=== PATIENT | female | born 1980 | race Hispanic/Latino ===

== ENCOUNTER 2021-05-05 12:27 | Emergency (ER) | payer SELFPAY ==
[~2021-05-05] VITALS: Ht 175.3 cm; Wt 87.1 kg
[~2021-05-05 12:27] MED LIST: BACLOFEN20 MG PO; BENTYL10 MG PO; CARAFATE; CARAFATE SU1 G/10 ML; CARAFATE1 GM/10 ML PO; CYMBALTA20 MG PO; DEXILANT; GABAPENTIN100 MG PO; GABAPENTIN300 MG PO; LEVOTHYROXINE75 MCG PO; NEXIUM40 MG PO; NORCO 10-325 T1 EACH PO; NORCO 5-325 TA1 EACH PO; NORCO 7.5-3251 EACH; NORCO 7.5-3251 EACH PO; PANTOPRAZOLE SO40 MG PO; PREDNISONE20 MG PO; REGLAN10 MG PO; SOMA350 MG PO; TYLENOL WITH C1 EACH PO; ULTRAM50 MG PO; Z.0.DEXILANT60 MG; Z.0.NEXIUM40 MG; Z.0.PRENATAL VITAM1; ZOFRAN4 MG PO
[2021-05-05] MEDS ORDERED: SODIUM CHLORIDE 0.9% 1000ML 1,000 ML IV STA (12:41)
[2021-05-05] MEDS ORDERED: Morphine 4mg Syringe 4 MG/ML INJ IV STA (12:41)
[2021-05-05] MEDS ORDERED: ONDANSETRON HCL INJ 2MG/ML 2ML 2 MG/ML VIAL IV ONE (13:00)
[2021-05-05 13:44] LABS: CLARITY,URINE TURBID (CLEAR); COLOR,URINE RED (YELLOW); LEUKOCYTE ESTERASE ,URINE TRACE (NEGATIVE); NITRITE,URINE NEGATIVE (NEGATIVE)
[2021-05-05 13:45] LABS: BACTERIA,URINE FEW /HPF; EPITHELIAL CELLS,URINE FEW /LPF; KETONES,URINE NEGATIVE (NEGATIVE); PROTEIN,URINE DIPSTICK 1+ (NEGATIVE); RBC,URINE >50 /HPF (0-5); URINE UROBILINOGEN 0.2 mg/dL (0.2 - 1)
[2021-05-05 14:22] LABS: BASOPHILS % 0.7 % (0.0-1.0); EOSINOPHILS # (AUTO) 0.1 (0.0-0.4); EOSINOPHILS % 1.9 % (0.0-6.0); HEMATOCRIT 37.7 % (34.2-44.1); HEMOGLOBIN 11.9 g/dL (12.0-16.0); LYMPHOCYTES # (AUTO) 1.6 (1.0-3.2); LYMPHOCYTES % 37.8 % (18.0-39.1); MEAN CORPUSCULAR HEMOGLOBIN 29.1 pg (28-32); MEAN CORPUSCULAR HGB CONC 31.6 g/dL (31-35); MEAN CORPUSCULAR VOLUME 92.2 fL (81-99); MONOCYTES # (AUTO) 0.3 (0.2-0.8); MONOCYTES % 6.6 % (4.4-11.3); NEUTROPHILS # (AUTO) 2.2 (2.1-6.9); NEUTROPHILS % 52.8 % (38.7-80.0); PLATELET COUNT 233 x10e3/uL (140-360); RED BLOOD COUNT 4.09 x10e6/uL (3.6-5.1); RED CELL DISTRIBUTION WIDTH 15.3 % (11.7-14.4)
[2021-05-05 14:35] LABS: INR 0.83; PARTIAL THROMBOPLASTIN TIME 23.5 seconds (23.8-35.5); PROTHROMBIN TIME 12.1 seconds (11.9-14.5)
[2021-05-05 14:40] LABS: ALBUMIN/GLOBULIN RATIO 1.1 (0.8-2.0); ANION GAP 15.9 mmol/L (8-16); CALCIUM 8.3 mg/dL (8.4-10.2); CREATININE, SERUM 0.75 mg/dL (0.57-1.11); POTASSIUM 3.9 mmol/L (3.5-5.1)
[2021-05-05] MEDS ORDERED: ONDANSETRON HCL INJ 2MG/ML 2ML 2 MG/ML VIAL IV STA (14:56)
[2021-05-05] MEDS ORDERED: Morphine 4mg Syringe 4 MG/ML INJ IV PRN (15:00)
[2021-05-05] MEDS ORDERED: FAMOTIDINE 20 MG/2 ML VIAL IV STA (15:42)
[2021-05-05] MEDS ORDERED: METOCLOPRAMIDE HCL 10 MG/2ML VIAL IV ONE (15:45)
[2021-05-05] MEDS ORDERED: DONNATAL/LIDOCAINE/MAALOX 30 ML SUSP PO ONE (15:45)
[2021-05-05] MEDS ORDERED: DIPHENHYDRAMINE HCL INJ 50 MG/ML VIAL IV ONE (15:45)
[2021-05-05] MEDS ORDERED: CIPRO500 MG PO (16:29)
[2021-05-05] MEDS ORDERED: ONDANSETRON ODT8 MG PO (16:29)
[2021-05-05 17:17] VITALS: BP 131/99
== END 2021-05-05 17:19 | disposition home or self-care (01) ==
LOC: ER 12:45
DX: R31.9 Hematuria, unspecified (principal); N12 Tubulo-interstitial nephritis, not specified as acute or chronic; N39.0 Urinary tract infection, site not specified; M54.50 Low back pain, unspecified; R11.2 Nausea with vomiting, unspecified; E03.9 Hypothyroidism, unspecified; K21.9 Gastro-esophageal reflux disease without esophagitis; Z85.850 Personal history of malignant neoplasm of thyroid; Z85.41 Personal history of malignant neoplasm of cervix uteri; Z85.42 Personal history of malignant neoplasm of other parts of uterus
CPT/HCPCS: 36415; 74176; 80053; 81001; 85025; 85610; 85730; 87086; 99284; J1200; J2270; J2405; J2765; J7030

== ENCOUNTER 2021-07-15 16:32 | Emergency (ER) | payer SELFPAY ==
[~2021-07-15] VITALS: Ht 175.3 cm; Wt 87.1 kg
[~2021-07-15 16:32] MED LIST changes: +CIPRO500 MG PO; +ONDANSETRON ODT8 MG PO
[2021-07-15] MEDS: Morphine 4mg Syringe 4 MG/ML INJ IV PRN ×2 (18:17→18:45)
[2021-07-15] MEDS: SODIUM CHLORIDE 0.9% 1000ML 1,000 ML IV SCH ×2 (18:17→18:45)
[2021-07-15] MEDS: ONDANSETRON HCL INJ 2MG/ML 2ML 2 MG/ML VIAL IV PRN ×2 (18:17→18:45)
[2021-07-15 18:18] LABS: BASOPHILS % 0.8 % (0.0-1.0); EOSINOPHILS # (AUTO) 0.1 (0.0-0.4); EOSINOPHILS % 1.6 % (0.0-6.0); HEMATOCRIT 38.1 % (34.2-44.1); HEMOGLOBIN 11.8 g/dL (12.0-16.0); LYMPHOCYTES # (AUTO) 1.9 (1.0-3.2); LYMPHOCYTES % 39.2 % (18.0-39.1); MEAN CORPUSCULAR HEMOGLOBIN 28.4 pg (28-32); MEAN CORPUSCULAR VOLUME 91.6 fL (81-99); MONOCYTES # (AUTO) 0.4 (0.2-0.8); MONOCYTES % 7.6 % (4.4-11.3); NEUTROPHILS # (AUTO) 2.5 (2.1-6.9); NEUTROPHILS % 50.4 % (38.7-80.0); PLATELET COUNT 246 x10e3/uL (140-360); RED BLOOD COUNT 4.16 x10e6/uL (3.6-5.1); RED CELL DISTRIBUTION WIDTH 15.8 % (11.7-14.4)
[2021-07-15 18:39] LABS: ALBUMIN 4.4 g/dL (3.5-5.0); ANION GAP 16.2 mmol/L (8-16); CALCIUM 9.5 mg/dL (8.4-10.2); CREATININE, SERUM 0.89 mg/dL (0.57-1.11); POTASSIUM 4.2 mmol/L (3.5-5.1)
[2021-07-15] MEDS ORDERED: SODIUM CHLORIDE 0.9% 50ML 50 ML ONE (18:55)
[2021-07-15] MEDS ORDERED: IOPAMIDOL 370 MG/ML 200 ML INFUS..BTL INJ ONE (18:55)
[2021-07-15] MEDS ORDERED: PROMETHAZINE HCL (IM) 25 MG/ML VIAL IM ONE (19:00)
[2021-07-15] MEDS ORDERED: Morphine 4mg Syringe 4 MG/ML INJ IV PRN (19:15)
[2021-07-15] MEDS ORDERED: Morphine 4mg Syringe 4 MG/ML INJ IV ONE (19:30)
[2021-07-15 20:53] VITALS: BP 128/76
== END 2021-07-15 20:54 | disposition home or self-care (01) ==
LOC: ER 17:15
DX: R11.2 Nausea with vomiting, unspecified (principal); R10.32 Left lower quadrant pain; R19.7 Diarrhea, unspecified; E03.9 Hypothyroidism, unspecified; Z85.41 Personal history of malignant neoplasm of cervix uteri; Z85.850 Personal history of malignant neoplasm of thyroid; Z85.42 Personal history of malignant neoplasm of other parts of uterus
CPT/HCPCS: 36415; 80053; 84702; 85025; 99283; J2270; J2405; J2550; J7030; Q9967

== ENCOUNTER 2021-12-24 01:02 | Emergency (ER) | payer OTHER ==
[~2021-12-24] VITALS: Ht 175.3 cm; Wt 87.1 kg
[2021-12-24] MEDS ORDERED: SODIUM CHLORIDE 0.9% 1000ML 1,000 ML IV STA (01:17)
[2021-12-24] MEDS ORDERED: ONDANSETRON HCL INJ 2MG/ML 2ML 2 MG/ML VIAL IV STA ×2 (01:17→01:36)
[2021-12-24] MEDS ORDERED: Morphine 4mg INJECTION 4 MG/ML INJ IV STA (01:36)
[2021-12-24 01:42] LABS: BASOPHILS % 0.8 % (0.0-1.0); EOSINOPHILS # (AUTO) 0.1 (0.0-0.4); EOSINOPHILS % 1.6 % (0.0-6.0); HEMATOCRIT 38.1 % (34.2-44.1); HEMOGLOBIN 11.3 g/dL (12.0-16.0); LYMPHOCYTES # (AUTO) 2.2 (1.0-3.2); LYMPHOCYTES % 43.5 % (18.0-39.1); MEAN CORPUSCULAR HEMOGLOBIN 25.5 pg (28-32); MEAN CORPUSCULAR HGB CONC 29.7 g/dL (31-35); MONOCYTES # (AUTO) 0.4 (0.2-0.8); MONOCYTES % 7.7 % (4.4-11.3); NEUTROPHILS # (AUTO) 2.3 (2.1-6.9); NEUTROPHILS % 46.2 % (38.7-80.0); PLATELET COUNT 302 x10e3/uL (140-360); RED BLOOD COUNT 4.43 x10e6/uL (3.6-5.1); RED CELL DISTRIBUTION WIDTH 17.5 % (11.7-14.4)
[2021-12-24 01:46] LABS: CLARITY,URINE TURBID (CLEAR); COLOR,URINE RED (YELLOW)
[2021-12-24 01:50] LABS: KETONES,URINE NEGATIVE (NEGATIVE); LEUKOCYTE ESTERASE ,URINE LARGE (NEGATIVE); NITRITE,URINE NEGATIVE (NEGATIVE); PROTEIN,URINE DIPSTICK >=300 (NEGATIVE); URINE UROBILINOGEN 0.2 mg/dL (0.2 - 1)
[2021-12-24 01:51] LABS: BACTERIA,URINE MODERATE /HPF; RBC,URINE 21-50 /HPF (0-5)
[2021-12-24] MEDS ORDERED: Morphine 2mg Syringe 2 MG/ML SYR ONE ×3 (01:51→02:28)
[2021-12-24 01:52] LABS: AMPHETAMINES SCREEN,URINE NEGATIVE (NEGATIVE); BENZODIAZEPINES SCREEN,URINE NEGATIVE (NEGATIVE); PHENCYCLIDINE SCREEN,URINE NEGATIVE (NEGATIVE)
[2021-12-24 01:58] LABS: ALBUMIN 4.1 g/dL (3.5-5.0); ANION GAP 15.6 mmol/L (8-16); CALCIUM 9.3 mg/dL (8.4-10.2); CREATININE, SERUM 0.93 mg/dL (0.57-1.11); POTASSIUM 3.6 mmol/L (3.5-5.1)
[2021-12-24] MEDS ORDERED: Morphine 2mg Syringe 2 MG/ML SYR IV ONE (02:30)
[2021-12-24] MEDS ORDERED: ACETAMINOPHEN 325 MG TAB PO STA (02:56)
[2021-12-24] MEDS ORDERED: ONDANSETRON ODT4 MG PO (03:17)
[2021-12-24] MEDS ORDERED: CIPRO500 MG PO (03:17)
== END 2021-12-24 04:48 | disposition home or self-care (01) ==
LOC: ER 01:10
DX: N39.0 Urinary tract infection, site not specified (principal); Z88.6 Allergy status to analgesic agent; Z88.1 Allergy status to other antibiotic agents; Z88.0 Allergy status to penicillin; Z88.2 Allergy status to sulfonamides; Z88.8 Allergy status to other drugs, medicaments and biological substances; E03.9 Hypothyroidism, unspecified; Z79.899 Other long term (current) drug therapy; Z85.850 Personal history of malignant neoplasm of thyroid; Z85.42 Personal history of malignant neoplasm of other parts of uterus; Z85.41 Personal history of malignant neoplasm of cervix uteri
CPT/HCPCS: 36415; 74176; 80053; 80307; 81001; 81025; 85025; 99283; J2270; J2405; J7030

== ENCOUNTER 2023-05-12 14:31 | Inpatient (IN) | payer OTHER ==
[~2023-05-12] VITALS: Ht 170.2 cm; Wt 98.4 kg
[~2023-05-12 14:31] MED LIST changes: +ACETAMINOPHEN325 M1 PO; +HYDROCODON-ACE1 EA11 PO; +LEVOTHYROXINE175 MCG PO; +LEVOTHYROXINE50 MCG PO; +ONDANSETRON ODT4 MG PO
[2023-05-12 16:20] VITALS: BP 148/110; PULSE 81; RESP 18; TEMP 97.7; O2SAT 95
[2023-05-12 16:30] VITALS: BP 148/110; PULSE 74; RESP 18; TEMP 97.7; O2SAT 95
[2023-05-12] MEDS ORDERED: ONDANSETRON HCL INJ 2MG/ML 2ML 2 MG/ML VIAL IV PRN (17:15)
[2023-05-12] MEDS ORDERED: HYDRALAZINE HCL 20 MG/ML VIAL IV PRN (17:15)
[2023-05-12] MEDS ORDERED: DEXTROSE 5%/0.9% SOD CHL 1,000 ML IV SCH (17:15)
[2023-05-12] MEDS ORDERED: ACETAMINOPHEN 325 MG TAB PO PRN (17:15)
[2023-05-12] MEDS: HYDROMORPHONE 1MG/1ML INJ IV PRN ×3 (17:45→23:26)
[2023-05-12] MEDS: METOCLOPRAMIDE HCL 10 MG/2ML VIAL IV SCH ×2 (17:46→23:54)
[2023-05-12] MEDS: LEVOTHYROXINE SODIUM 75 MCG TAB PO SCH ×2 (17:58→17:59)
[2023-05-12 20:00] VITALS: BP 101/70; PULSE 75; RESP 18; TEMP 97.9; O2SAT 96
[2023-05-13] VITALS (7 sets, daily range): BP systolic 111–129; BP diastolic 84–101; PULSE 72–83; RESP 16–20; TEMP 97.6–98.1; O2SAT 97–99
[2023-05-13] MEDS: LACTATED RINGER'S 1,000 ML INJ SCH ×3 (01:34→17:15)
[2023-05-13] MEDS: HYDROMORPHONE 1MG/1ML INJ IV PRN ×7 (01:45→20:33)
[2023-05-13] MEDS: LEVOTHYROXINE SODIUM 75 MCG TAB PO SCH (04:49)
[2023-05-13] MEDS: METOCLOPRAMIDE HCL 10 MG/2ML VIAL IV SCH ×3 (04:49→17:16)
[2023-05-13 06:37] LABS: BASOPHILS # (AUTO) 0.1 (0.0-0.1); BASOPHILS % 1.2 % (0.0-1.0); EOSINOPHILS # (AUTO) 0.2 (0.0-0.4); EOSINOPHILS % 4.4 % (0.0-6.0); HEMATOCRIT 30.2 % (34.2-44.1); HEMOGLOBIN 9.4 g/dL (12.0-16.0); LYMPHOCYTES # (AUTO) 1.8 (1.0-3.2); LYMPHOCYTES % 35.4 % (18.0-39.1); MEAN CORPUSCULAR HGB CONC 31.1 g/dL (31-35); MEAN CORPUSCULAR VOLUME 96.5 fL (81-99); MONOCYTES # (AUTO) 0.3 (0.2-0.8); MONOCYTES % 5.8 % (4.4-11.3); NEUTROPHILS # (AUTO) 2.6 (2.1-6.9); NEUTROPHILS % 52.8 % (38.7-80.0); PLATELET COUNT 196 x10e3/uL (140-360); RED BLOOD COUNT 3.13 x10e6/uL (3.6-5.1); RED CELL DISTRIBUTION WIDTH 16.2 % (11.7-14.4); WHITE BLOOD COUNT 4.97 x10e3/uL (4.8-10.8)
[2023-05-13 07:16] LABS: MAGNESIUM 1.8 MG/DL (1.3-2.1)
[2023-05-13 07:18] LABS: ALBUMIN 4.1 g/dL (3.5-5.0); ALBUMIN/GLOBULIN RATIO 1.2 (0.8-2.0); ANION GAP 14.6 mmol/L (8-16); CALCIUM 8.1 mg/dL (8.4-10.2); CREATININE, SERUM 1.22 mg/dL (0.57-1.11); POTASSIUM 3.6 mmol/L (3.5-5.1)
[2023-05-13 16:25] LABS: FERRITIN 35.16 ng/mL (4.63-204.00)
[2023-05-14] VITALS (7 sets, daily range): BP systolic 107–142; BP diastolic 55–106; PULSE 68–93; RESP 18–20; TEMP 97.4–98.6; O2SAT 93–100
[2023-05-14] MEDS: HYDROMORPHONE 1MG/1ML INJ IV PRN ×8 (00:03→22:20)
[2023-05-14] MEDS: METOCLOPRAMIDE HCL 10 MG/2ML VIAL IV SCH ×5 (00:04→23:31)
[2023-05-14] MEDS: LACTATED RINGER'S 1,000 ML INJ SCH ×4 (02:21→17:15)
[2023-05-14] MEDS: LEVOTHYROXINE SODIUM 75 MCG TAB PO SCH (05:36)
[2023-05-14 05:37] LABS: BASOPHILS % 0.7 % (0.0-1.0); EOSINOPHILS # (AUTO) 0.2 (0.0-0.4); EOSINOPHILS % 4.5 % (0.0-6.0); HEMATOCRIT 29.9 % (34.2-44.1); HEMOGLOBIN 9.6 g/dL (12.0-16.0); LYMPHOCYTES # (AUTO) 1.5 (1.0-3.2); LYMPHOCYTES % 34.4 % (18.0-39.1); MEAN CORPUSCULAR HEMOGLOBIN 30.4 pg (28-32); MEAN CORPUSCULAR HGB CONC 32.1 g/dL (31-35); MEAN CORPUSCULAR VOLUME 94.6 fL (81-99); MONOCYTES # (AUTO) 0.3 (0.2-0.8); MONOCYTES % 6.6 % (4.4-11.3); NEUTROPHILS # (AUTO) 2.4 (2.1-6.9); NEUTROPHILS % 53.6 % (38.7-80.0); PLATELET COUNT 168 x10e3/uL (140-360); RED BLOOD COUNT 3.16 x10e6/uL (3.6-5.1); RED CELL DISTRIBUTION WIDTH 16.1 % (11.7-14.4); WHITE BLOOD COUNT 4.42 x10e3/uL (4.8-10.8)
[2023-05-14 05:46] LABS: INR 0.95; PROTHROMBIN TIME 12.9 seconds (11.9-14.5)
[2023-05-14 06:01] LABS: ANION GAP 13.3 mmol/L (8-16); CALCIUM 8.1 mg/dL (8.4-10.2); CREATININE, SERUM 0.97 mg/dL (0.57-1.11); POTASSIUM 3.3 mmol/L (3.5-5.1)
[2023-05-14 06:15] LABS: MAGNESIUM 1.8 MG/DL (1.3-2.1)
[2023-05-14] MEDS ORDERED: POTASSIUM CHLORIDE 20MEQ/100ML 100 ML IV ONE (09:45)
[2023-05-14] MEDS ORDERED: SODIUM CHLORIDE 0.9% 0 ML ONE (09:58)
[2023-05-14] MEDS ORDERED: IOPAMIDOL 370 MG/ML 100 ML INFUS..BTL INJ ONE (09:58)
[2023-05-14 13:11] LABS: WBC,FECAL (FECAL LACTOFERRIN) NEGATIVE (NEGATIVE)
[2023-05-14] MEDS ORDERED: HYDROCODONE/APAP 7.5MG-325MG 1 EA TAB PO PRN (15:15)
[2023-05-14] MEDS: SODIUM FERRIC GLUCONATE COMPLX 125 MG in SODIUM CHLORIDE 0.9% 100 ML IV ONE ×2 (18:12→18:17)
[2023-05-15] VITALS: BP 117/84; PULSE 94; RESP 16; TEMP 97.6; O2SAT 97
[2023-05-15] MEDS: HYDROMORPHONE 1MG/1ML INJ IV PRN ×7 (03:38→22:48)
[2023-05-15 05:13] VITALS: BP 131/96; PULSE 86; RESP 18; TEMP 98; O2SAT 100
[2023-05-15] MEDS: METOCLOPRAMIDE HCL 10 MG/2ML VIAL IV SCH ×5 (06:00→22:46)
[2023-05-15] MEDS: LEVOTHYROXINE SODIUM 75 MCG TAB PO SCH (06:24)
[2023-05-15] MEDS: LACTATED RINGER'S 1,000 ML INJ SCH ×2 (06:29→06:33)
[2023-05-15] MEDS: IRON SUCROSE 100 MG in SODIUM CHLORIDE 0.9% 100 ML IV SCH (07:46)
[2023-05-15 08:43] VITALS: BP 131/96; PULSE 86; RESP 18; TEMP 98; O2SAT 100
[2023-05-15 09:42] VITALS: BP 129/86; PULSE 81; RESP 19; TEMP 98; O2SAT 99
[2023-05-15] MEDS ORDERED: FENTANYL CITRATE/PF 100MCG/2 ML INJ ONE (12:48)
[2023-05-15] MEDS ORDERED: METOCLOPRAMIDE HCL 10 MG/2ML VIAL ONE (12:53)
[2023-05-15] MEDS ORDERED: PROPOFOL IV EMULSION 10 MG/ML 50 ML VIAL IV ONE (12:53)
[2023-05-15] MEDS ORDERED: LIDOCAINE HCL 2% LOCAL INJ 5 ML SDV VIAL INJ ONE (12:53)
[2023-05-15 16:13] VITALS: BP 124/90; PULSE 87; RESP 19; TEMP 98.3; O2SAT 95
[2023-05-15 20:00] VITALS: BP 129/88; PULSE 93; RESP 20; TEMP 97.5; O2SAT 97
[2023-05-16] VITALS (8 sets, daily range): BP systolic 113–132; BP diastolic 72–95; PULSE 84–92; RESP 16–20; TEMP 97–98.3; O2SAT 97–100
[2023-05-16] MEDS: HYDROMORPHONE 1MG/1ML INJ IV PRN ×8 (01:45→23:55)
[2023-05-16] MEDS: LEVOTHYROXINE SODIUM 75 MCG TAB PO SCH (05:11)
[2023-05-16] MEDS: METOCLOPRAMIDE HCL 10 MG/2ML VIAL IV SCH ×4 (05:11→23:56)
[2023-05-16 06:21] LABS: BASOPHILS % 0.8 % (0.0-1.0); EOSINOPHILS # (AUTO) 0.2 (0.0-0.4); EOSINOPHILS % 4.9 % (0.0-6.0); HEMATOCRIT 28.8 % (34.2-44.1); HEMOGLOBIN 9.2 g/dL (12.0-16.0); LYMPHOCYTES # (AUTO) 1.2 (1.0-3.2); LYMPHOCYTES % 30.7 % (18.0-39.1); MEAN CORPUSCULAR HEMOGLOBIN 30.6 pg (28-32); MEAN CORPUSCULAR HGB CONC 31.9 g/dL (31-35); MEAN CORPUSCULAR VOLUME 95.7 fL (81-99); MONOCYTES # (AUTO) 0.4 (0.2-0.8); MONOCYTES % 9.8 % (4.4-11.3); NEUTROPHILS # (AUTO) 2.1 (2.1-6.9); NEUTROPHILS % 53.8 % (38.7-80.0); PLATELET COUNT 157 x10e3/uL (140-360); RED BLOOD COUNT 3.01 x10e6/uL (3.6-5.1); RED CELL DISTRIBUTION WIDTH 16.3 % (11.7-14.4); WHITE BLOOD COUNT 3.88 x10e3/uL (4.8-10.8)
[2023-05-16] MEDS: IRON SUCROSE 100 MG in SODIUM CHLORIDE 0.9% 100 ML IV SCH (07:43)
[2023-05-16] MEDS ORDERED: MAGNESIUM SULFATE 2GM/50ML IV ONE (08:45)
[2023-05-16] MEDS ORDERED: MAGNESIUM SULFATE 2GM/50ML 50 ML IV ONE (09:30)
[2023-05-16] MEDS: VANCOMYCIN HCL 125 MG CAPSULE PO SCH ×4 (10:54→23:56)
[2023-05-16] MEDS: POTASSIUM CHLORIDE 10MEQ EA PO SCH ×2 (10:54→12:58)
[2023-05-16 18:21] LABS: EOSINOPHILS % (MANUAL) 7 % (0-7); LYMPHOCYTES % (MANUAL) 36 % (19-48); MONOCYTES % (MANUAL) 6 % (3.4-9.0); NEUTROPHILS % (MANUAL) 51 % (40-74)
[2023-05-16 18:22] LABS: PLATELET ESTIMATE ADEQUATE; PLATELET MORPHOLOGY COMMENT NORMAL; RBC MORPHOLOGY COMMENT NORMAL
[2023-05-17 00:27] VITALS: BP 109/66; PULSE 92; RESP 18; TEMP 98; O2SAT 98
[2023-05-17] MEDS: LACTATED RINGER'S 1,000 ML INJ SCH (01:07)
[2023-05-17 01:57] VITALS: BP 109/66; PULSE 92; RESP 18; TEMP 98; O2SAT 98
[2023-05-17] MEDS: HYDROMORPHONE 1MG/1ML INJ IV PRN ×4 (03:15→12:23)
[2023-05-17 04:15] VITALS: BP 124/99; PULSE 82; RESP 17; TEMP 98; O2SAT 95
[2023-05-17] MEDS: VANCOMYCIN HCL 125 MG CAPSULE PO SCH ×2 (04:16→12:00)
[2023-05-17] MEDS: METOCLOPRAMIDE HCL 10 MG/2ML VIAL IV SCH ×2 (04:16→12:00)
[2023-05-17] MEDS: LEVOTHYROXINE SODIUM 75 MCG TAB PO SCH (05:12)
[2023-05-17] MEDS: IRON SUCROSE 100 MG in SODIUM CHLORIDE 0.9% 100 ML IV SCH (07:55)
[2023-05-22] MEDS ORDERED: NYSTATIN-TRIAMC15 GM TOP (11:30)
[2023-05-22] MEDS ORDERED: DICYCLOMINE HCL20 MG PO (11:30)
== END 2023-05-17 12:58 | disposition home or self-care (01) | DRG 392 ==
LOC: MED/SURG2 16:03
PROVIDERS: ADMIT Internal Medicine; ATTEND Internal Medicine
PROC: 02HV33Z Insertion of Infusion Device into Superior Vena Cava, Percutaneous Approach (ICD-10-PCS; 2023-05-13)
PROC: B548ZZA Ultrasonography of Superior Vena Cava, Guidance (ICD-10-PCS; 2023-05-13)
PROC: 0DJ08ZZ Inspection of Upper Intestinal Tract, Via Natural or Artificial Opening Endoscopic (ICD-10-PCS; principal; 2023-05-15 11:40)
DX: K52.9 Noninfective gastroenteritis and colitis, unspecified (principal); K50.90 Crohn's disease, unspecified, without complications; D50.9 Iron deficiency anemia, unspecified; K44.9 Diaphragmatic hernia without obstruction or gangrene; K31.84 Gastroparesis; R13.10 Dysphagia, unspecified; E89.0 Postprocedural hypothyroidism; R53.1 Weakness; E86.0 Dehydration; K21.00 Gastro-esophageal reflux disease with esophagitis, without bleeding; D72.819 Decreased white blood cell count, unspecified; Z85.850 Personal history of malignant neoplasm of thyroid; Z90.710 Acquired absence of both cervix and uterus; Z20.822 Contact with and (suspected) exposure to COVID-19; Z85.41 Personal history of malignant neoplasm of cervix uteri; Z91.148 Patient's other noncompliance with medication regimen for other reason
CPT/HCPCS: 36415; 36569; 43239; 71045; 74019; 74174; 74246; 80048; 80053; 82105; 82270; 82378; 82607; 82728; 82746; 83540; 83630; 83690; 83735; 84100; 84439; 84443; 84466; 85025; 85045; 85610; 86140; 86301; 86304; 86376; 87045; 87177; 87324; 87449; J1170; J1756; J2001; J2765; J2916; J3475; J3480; J7042; J7050; Q9967